=== PATIENT | male | born 1955 | race Caucasian/White ===

== ENCOUNTER → 2016-03-27 | Outpatient (CLI) | payer OTHER ==
[~2016-03-27] MED LIST: ASCO1CAP3 PO; ENOX100I SQ; WARF10TA4 PO; WARF7.5T4 PO
== END | disposition home or self-care (01) ==
LOC: C.PATHSPEC 17:34
PROVIDERS: ATTEND Urology
DX: N40.3 Nodular prostate with lower urinary tract symptoms (principal); C61 Malignant neoplasm of prostate

== ENCOUNTER → 2016-03-27 | Outpatient (CLI) | payer OTHER ==
[2016-03-27 09:35] LABS: PARTIAL THROMBOPLASTIN RATIO 1.1
== END | disposition home or self-care (01) ==
LOC: C.LAB1850 09:05
PROVIDERS: ATTEND Urology
DX: Z12.5 Encounter for screening for malignant neoplasm of prostate (principal)

== ENCOUNTER → 2016-04-12 | Outpatient (CLI) | payer OTHER ==
--- NOTE | 2016-04-12 16:52 | DIAGNOSTIC IMAGING REPORT ---
WHOLE-BODY NUCLEAR BONE SCAN CLINICAL HISTORY: Prostate cancer. COMPARISON STUDY: Chest CT dated 11/28/2015. TECHNIQUE: Three hours following the IV administration of 24.2 mCi of technetium 99m MDP, whole body nuclear bone scan was performed in the anterior and posterior projections. FINDINGS: There is no abnormal osseous tracer deposition identified typical in appearance for bony metastatic disease. Typically degenerative uptake is identified in the shoulders common knees, and ankles. Mild thoracic scoliosis is observed. There is slightly asymmetric activity suggested in the right anterior superior iliac spine as compared to the left. A small focus of activity projects over the right calvarium. There is expected excreted activity within the renal collecting system and bladder. A small focus of activity localizes to the left upper pole renal collecting system, possibly reflecting pooled tracer within a calyceal diverticulum. IMPRESSION: 1. There is no abnormal trace deposition identified typical for bony metastatic disease. 2. A small focus of activity projects over the right calvarium. This is not typical for metastatic disease and could be seen with a meningioma. Follow-up with a contrast-enhanced MRI of the brain is recommended for further assessment. 3. Slightly asymmetric activity is suggested in the right anterior superior iliac spine as compared to left. This is not typical for metastatic disease and may be related to enthesophyte formation. Pelvic radiograph is recommended for further assessment. 4. Additional findings as above. Electronically signed by: Axel Gutierrez M.D. 04/12/2016 4:51 PM Dictated Date/Time: 04/12/2016 4:46 PM
== END | disposition home or self-care (01) ==
LOC: C.NUCL 12:29
PROVIDERS: ATTEND Urology
DX: C61 Malignant neoplasm of prostate (principal)

== ENCOUNTER → 2016-05-17 | Outpatient (CLI) | payer OTHER ==
--- NOTE | 2016-05-17 10:05 | DIAGNOSTIC IMAGING REPORT ---
KUB HISTORY: Abnormal bone scan. Follow-up. COMPARISON: Bone scan 04/12/2016. FINDINGS: The bowel gas pattern is unremarkable. There are no dilated loops of small bowel to suggest an obstruction. No renal calculi. No ureteral calculi. No pneumoperitoneum or pneumatosis. An IVC filter is noted. No suspicious lytic or blastic osseous lesions. Enthesophytes at the right anterior superior iliac spine may correspond to the bone scan abnormality. IMPRESSION: No suspicious lytic or blastic osseous lesions. Electronically signed by: Mario Moody M.D. 05/17/2016 10:03 AM Dictated Date/Time: 05/17/2016 10:00 AM
--- NOTE | 2016-05-17 10:06 | DIAGNOSTIC IMAGING REPORT ---
PELVIS/BILATERAL HIP 2 VIEWS CLINICAL HISTORY: C61 R93.8 COMPARISON STUDY: Bone scan dated 04/12/2016 FINDINGS: Mild degenerative change of the hips bilaterally. Subtle osteophytic and/or degenerative reaction anterior iliac spines of the right and to lesser extent left. This apparently calcified activity seen on bone scan. Sacral iliac joints show minimal degenerative change. IMPRESSION: Mild degenerative change of the hips as well as iliac wings. This is apparently a calculus of the activity seen on bone scan. Electronically signed by: Vimal Mead M.D. 05/17/2016 10:04 AM Dictated Date/Time: 05/17/2016 9:59 AM
== END | disposition home or self-care (01) ==
LOC: C.RAD1850 09:39
PROVIDERS: ATTEND Internal Medicine
DX: R93.8 Abnormal findings on diagnostic imaging of other specified body structures (principal); C61 Malignant neoplasm of prostate

== ENCOUNTER → 2016-08-03 | Outpatient (CLI) | payer OTHER ==
[~2016-08-03] MED LIST changes: -ENOX100I SQ; -WARF7.5T4 PO
[2016-08-03 14:56] LABS: BLOOD UREA NITROGEN 20 mg/dl (7-18); BUN/CREATININE RATIO 18.3 (10-20); CALCIUM 8.6 mg/dl (8.5-10.1); CARBON DIOXIDE 22 mmol/L (21-32); CHLORIDE 109 mmol/L (98-107); GLUCOSE 86 mg/dl (70-99); POTASSIUM 3.9 mmol/L (3.5-5.1); SODIUM 142 mmol/L (136-145)
== END | disposition home or self-care (01) ==
LOC: C.LAB1850 13:02
PROVIDERS: ATTEND Internal Medicine
DX: C61 Malignant neoplasm of prostate (principal)

== ENCOUNTER → 2016-08-27 | Outpatient (CLI) | payer OTHER ==
[2016-08-27 15:49] LABS: BASO % 0.6 %; BASO ABS # 0.05 K/uL (0-0.2); COMPLETE YES; EOS % 1.2 %; HEMATOCRIT 47.1 % (42-52); IG% 0.1 %; LYMPH % 35.5 %; LYMPH ABS # 3.01 K/uL (1.2-3.4); MEAN CELL VOLUME 99.4 fL (80-100); MEAN CORPUSCULAR HGB CONC 34.2 g/dl (32-36); MEAN PLATELET VOLUME 11.4 fL (7.4-10.4); MONO % 15.4 %; NEUT % 47.2 %; PLATELET COUNT 354 K/uL (130-400); RED BLOOD COUNT 4.74 M/uL (4.7-6.1); WHITE BLOOD COUNT 8.49 K/uL (4.8-10.8)
[2016-08-27 15:55] LABS: ALT/SGPT 29 U/L (12-78); AST/SGOT 16 U/L (15-37); BLOOD UREA NITROGEN 22 mg/dl (7-18); BUN/CREATININE RATIO 19.7 (10-20); CALCIUM 8.9 mg/dl (8.5-10.1); CARBON DIOXIDE 25 mmol/L (21-32); CHLORIDE 111 mmol/L (98-107); GLUCOSE 86 mg/dl (70-99); POTASSIUM 4.1 mmol/L (3.5-5.1); SODIUM 142 mmol/L (136-145)
[2016-08-27 16:00] LABS: ALKALINE PHOSPHATASE 79 U/L (45-117)
[2016-08-27 16:01] LABS: URINE APPEARANCE CLEAR (CLEAR); URINE BILIRUBIN NEG (NEG); URINE COLOR YELLOW; URINE EPITHELIAL CELL AUTO 0-5 /lpf (0-5); URINE NITRITE NEG (NEG); URINE SPECIFIC GRAVITY 1.026 (1.000-1.030); UROBILINOGEN NEG (NEG); ZZUR CULT IF INDIC CLEAN CATCH NO
[2016-08-27 16:07] LABS: MANUAL MICROSCOPIC REQUIRED? NO; REVIEW REQ? NO
== END | disposition home or self-care (01) ==
LOC: C.LAB1850 14:27
PROVIDERS: ATTEND Internal Medicine
DX: N40.1 Benign prostatic hyperplasia with lower urinary tract symptoms (principal); C61 Malignant neoplasm of prostate

== ENCOUNTER → 2016-09-27 | Outpatient (CLI) | payer OTHER ==
[2016-09-27 13:26] LABS: BASO % 0.5 %; BASO ABS # 0.04 K/uL (0-0.2); COMPLETE YES; EOS % 1.4 %; HEMATOCRIT 44.2 % (42-52); IG% 0.1 %; LYMPH % 34.4 %; LYMPH ABS # 3.04 K/uL (1.2-3.4); MEAN CELL VOLUME 98.2 fL (80-100); MEAN CORPUSCULAR HEMOGLOBIN 34.9 pg (25-34); MEAN CORPUSCULAR HGB CONC 35.5 g/dl (32-36); MEAN PLATELET VOLUME 11.2 fL (7.4-10.4); MONO % 14.6 %; PLATELET COUNT 359 K/uL (130-400); WHITE BLOOD COUNT 8.83 K/uL (4.8-10.8)
[2016-09-27 13:49] LABS: ALT/SGPT 27 U/L (12-78); AST/SGOT 16 U/L (15-37); BLOOD UREA NITROGEN 17 mg/dl (7-18); BUN/CREATININE RATIO 17.4 (10-20); CALCIUM 8.8 mg/dl (8.5-10.1); CARBON DIOXIDE 26 mmol/L (21-32); CHLORIDE 108 mmol/L (98-107); GLUCOSE 88 mg/dl (70-99); POTASSIUM 3.9 mmol/L (3.5-5.1); SODIUM 139 mmol/L (136-145)
[2016-09-27 13:51] LABS: ALB/GLOB RATIO 1.1 (0.9-2); ALKALINE PHOSPHATASE 69 U/L (45-117)
[2016-09-27 15:21] LABS: URINE APPEARANCE CLEAR (CLEAR); URINE BILIRUBIN NEG (NEG); URINE COLOR YELLOW; URINE EPITHELIAL CELL AUTO 0-5 /lpf (0-5); URINE NITRITE NEG (NEG); URINE SPECIFIC GRAVITY 1.021 (1.000-1.030); UROBILINOGEN NEG (NEG); ZZUR CULT IF INDIC CLEAN CATCH NO
[2016-09-27 15:36] LABS: MANUAL MICROSCOPIC REQUIRED? NO; REVIEW REQ? NO
== END | disposition home or self-care (01) ==
LOC: C.LAB1850 12:02
PROVIDERS: ATTEND Internal Medicine
DX: Z00.00 Encounter for general adult medical examination without abnormal findings (principal)

== ENCOUNTER → 2016-10-22 | Outpatient (CLI) | payer OTHER ==
[2016-10-22 14:44] LABS: BASO % 0.7 %; BASO ABS # 0.07 K/uL (0-0.2); COMPLETE YES; EOS % 1.9 %; HEMATOCRIT 40.3 % (42-52); IG% 0.5 %; LYMPH % 31.4 %; LYMPH ABS # 3.08 K/uL (1.2-3.4); MEAN CELL VOLUME 103.3 fL (80-100); MEAN CORPUSCULAR HEMOGLOBIN 33.6 pg (25-34); MEAN CORPUSCULAR HGB CONC 32.5 g/dl (32-36); MEAN PLATELET VOLUME 11.4 fL (7.4-10.4); MONO % 14.2 %; NEUT % 51.3 %; PLATELET COUNT 753 K/uL (130-400); WHITE BLOOD COUNT 9.82 K/uL (4.8-10.8)
[2016-10-22 15:14] LABS: BLOOD UREA NITROGEN 18 mg/dl (7-18); BUN/CREATININE RATIO 16.4 (10-20); CALCIUM 8.6 mg/dl (8.5-10.1); CARBON DIOXIDE 27 mmol/L (21-32); CHLORIDE 107 mmol/L (98-107); GLUCOSE 97 mg/dl (70-99); POTASSIUM 4.5 mmol/L (3.5-5.1); SODIUM 140 mmol/L (136-145)
== END | disposition home or self-care (01) ==
LOC: C.LAB1850 13:35
PROVIDERS: ATTEND Internal Medicine
DX: D64.9 Anemia, unspecified (principal)

== ENCOUNTER → 2016-10-29 | Outpatient (CLI) | payer OTHER ==
--- NOTE | 2016-10-29 14:18 | DIAGNOSTIC IMAGING REPORT ---
ULTRASOUND VENOUS DOPPLER ULTRASOUND OF THE LEFT LOWER EXTREMITY CLINICAL HISTORY: Left leg pain and swelling COMPARISON STUDY: 02/01/2010 FINDINGS: No thrombus was visualized within the common femoral, superficial femoral, or popliteal veins. There is normal augmentation. There was normal color-flow within the proximal trifurcation veins of the calf. There is extensive greater saphenous vein thrombus extending from the proximal thigh to the mid calf. The maximal thrombus diameter is 9 mm. IMPRESSION: 1. Extensive greater saphenous vein thrombus. 2. No thrombus within the deep system proper Electronically signed by: Bryan Zepeda M.D. 10/29/2016 2:17 PM Dictated Date/Time: 10/29/2016 2:16 PM
== END | disposition home or self-care (01) ==
LOC: C.ULTR 13:42
PROVIDERS: ATTEND Internal Medicine
DX: M79.606 Pain in leg, unspecified (principal); Z86.711 Personal history of pulmonary embolism; I82.812 Embolism and thrombosis of superficial veins of left lower extremity

== ENCOUNTER → 2016-10-29 | Outpatient (CLI) | payer OTHER ==
[2016-10-29 14:34] LABS: BASO % 0.6 %; BASO ABS # 0.06 K/uL (0-0.2); COMPLETE YES; EOS % 4.6 %; HEMATOCRIT 40.7 % (42-52); IG% 0.2 %; LYMPH % 27.8 %; LYMPH ABS # 2.59 K/uL (1.2-3.4); MEAN CELL VOLUME 103.3 fL (80-100); MEAN CORPUSCULAR HGB CONC 32.9 g/dl (32-36); MONO % 14.5 %; NEUT % 52.3 %; PLATELET COUNT 553 K/uL (130-400); RED BLOOD COUNT 3.94 M/uL (4.7-6.1); WHITE BLOOD COUNT 9.31 K/uL (4.8-10.8)
== END | disposition home or self-care (01) ==
LOC: C.LAB1850 12:40
PROVIDERS: ATTEND Internal Medicine
DX: D64.9 Anemia, unspecified (principal)

== ENCOUNTER → 2016-11-14 | Outpatient (CLI) | payer OTHER ==
[2016-11-14 13:53] LABS: BASO % 0.6 %; BASO ABS # 0.05 K/uL (0-0.2); COMPLETE YES; EOS % 1.9 %; HEMATOCRIT 43.4 % (42-52); IG% 0.2 %; LYMPH % 34.3 %; LYMPH ABS # 3.01 K/uL (1.2-3.4); MEAN CELL VOLUME 101.4 fL (80-100); MEAN CORPUSCULAR HEMOGLOBIN 34.3 pg (25-34); MEAN CORPUSCULAR HGB CONC 33.9 g/dl (32-36); MEAN PLATELET VOLUME 11.5 fL (7.4-10.4); MONO % 14.8 %; NEUT % 48.2 %; PLATELET COUNT 435 K/uL (130-400); RED BLOOD COUNT 4.28 M/uL (4.7-6.1); WHITE BLOOD COUNT 8.78 K/uL (4.8-10.8)
[2016-11-14 14:02] LABS: INR 2.4 (0.9-1.1); PROTHROMBIN TIME (PATIENT) 26.5 SECONDS (9.0-12.0)
== END ==
LOC: C.LAB1850 12:39
PROVIDERS: ATTEND Internal Medicine
DX: D64.9 Anemia, unspecified (principal); Z79.01 Long term (current) use of anticoagulants

== ENCOUNTER → 2017-01-07 | Outpatient (CLI) | payer OTHER | END | disposition home or self-care (01) | LOC: C.LAB1850 12:22 | PROVIDERS: ATTEND Internal Medicine | DX: N40.1 Benign prostatic hyperplasia with lower urinary tract symptoms (principal); C61 Malignant neoplasm of prostate ==

== ENCOUNTER → 2017-04-11 | Outpatient (CLI) | payer OTHER ==
[2017-04-11 14:41] LABS: HEMATOCRIT 46.5 % (42-52); HEMOGLOBIN 15.7 g/dL (14.0-18.0); MEAN CELL VOLUME 99.8 fL (80-100); MEAN CORPUSCULAR HEMOGLOBIN 33.7 pg (25-34); MEAN CORPUSCULAR HGB CONC 33.8 g/dl (32-36); MEAN PLATELET VOLUME 11.6 fL (7.4-10.4); PLATELET COUNT 372 K/uL (130-400); RED CELL DISTRIBUTION WIDTH CV 14.2 % (11.5-14.5); RED CELL DISTRIBUTION WIDTH SD 51.7 fL (36.4-46.3); WHITE BLOOD COUNT 9.54 K/uL (4.8-10.8)
[2017-04-11 14:58] LABS: ALBUMIN 3.6 gm/dl (3.4-5.0); ALT/SGPT 26 U/L (12-78); AST/SGOT 17 U/L (15-37); BLOOD UREA NITROGEN 24 mg/dl (7-18); CALCIUM 8.5 mg/dl (8.5-10.1); CARBON DIOXIDE 25 mmol/L (21-32); CHOLESTEROL 174 mg/dl (0-200); CREATININE 1.22 mg/dl (0.60-1.40); GLUCOSE 103 mg/dl (70-99); POTASSIUM 3.9 mmol/L (3.5-5.1); SODIUM 136 mmol/L (136-145)
[2017-04-11 15:03] LABS: ALKALINE PHOSPHATASE 72 U/L (45-117); LDL CHOLESTEROL CALCULATED 105 mg/dl; TOTAL PROTEIN 7.5 gm/dl (6.4-8.2)
== END | disposition home or self-care (01) ==
LOC: C.LAB1850 12:30
PROVIDERS: ATTEND Internal Medicine
DX: C61 Malignant neoplasm of prostate (principal); E78.5 Hyperlipidemia, unspecified; G62.9 Polyneuropathy, unspecified; D64.9 Anemia, unspecified

== ENCOUNTER 2019-10-24 06:33 | Inpatient (IN) ==
[2019-10-24] MEDS ORDERED: ONDANSETRON INJ 2 MG/ML 2 ML VIAL IV STA (06:49)
[2019-10-24] MEDS ORDERED: SODIUM CHLORIDE 0.9% 1000ML 1,000 ML IV SCH (07:00)
[2019-10-24] MEDS ORDERED: MoRPHine SULFATE 2 MG/ML CARP IV STA (07:05)
--- NOTE | 2019-10-24 07:11 | Emergency Department Note ---
History of Present Illness General Chief complaint: Vomiting Stated complaint: VOMITING, HERNIA Time Seen by Provider: 10/24/19 06:52 Source: patient Mode of arrival: ambulatory Limitations: no limitations History of Present Illness Provider complaint: Vomiting/periumbilical abdominal pain Maximum Pain Intensity: 7 This is a 64-year-old male who presents to the ED with a chief complaint of nausea and vomiting that started last night after eating pizza for dinner. His daughter had the same food and did not fall sick. The patient states that he also has some pain in the supraumbilical region where he has an incisional hernia. This had been repaired a couple of years ago but has returned about 8 months ago. He states that he vomited 4 times. He denies diarrhea. The patient has no additional complaints at this time. Home Medications Home Medications Medication Instructions Recorded Confirmed Type acetaminophen [Tylenol Extra 500 mg PO Q6H PRN 10/24/19 10/24/19 History Strength] ascorbic acid (vitamin C) [Vitamin 500 mg PO QAM 10/24/19 10/24/19 History C] cholecalciferol (vitamin D3) 25 mcg PO UD PRN 10/24/19 10/24/19 History [Vitamin D3] magnesium oxide 400 mg PO UD PRN 10/24/19 10/24/19 History warfarin 10 mg PO PM 10/24/19 10/24/19 History zinc 50 mg PO UD PRN 10/24/19 10/24/19 History Allergies Allergy/AdvReac Type Severity Reaction Status Date / Time No Known Allergies Allergy Severe Verified 10/24/19 07:39 Past Med/Surg History Medical History History of pulmonary embolus (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 Prostate cancer (03/27/16) "Abnormal digital rectal exam, cT2a, PSA 2.13 Status post ultrasound-guided biopsies 03/27/2016 [place] 3+3 and 3+4 Prostate volume estimated at 48 Prostate density 0.044" Surgical History S/P insertion of IVC (inferior vena caval) filter S/P splenectomy Family History Daughter Asplenia Father BPH (benign prostatic hyperplasia) Diabetes Hypertension Sister Cancer Breast cancer Brother Crohn's disease Prostate cancer Mother Parkinson disease Social History Smoking Status: Never smoker Hx Alcohol Use: Yes (social) Hx Substance Use: No Preferred Language: Iranian Communication Ability: Effective Visual Impairment: No Limitations Hearing Ability: Normal marital status: Current Living Situation: Spouse current occupational status: employed current occupation: sales Feels Safe at Home: Yes Childhood Exposure to Second-Hand Smoke: No Physical Activity Frequency: 3-4 Times per Week Seatbelt Use: always Review of Systems A total of 10 systems reviewed and were otherwise negative Physical Exam Vital Signs Vital Signs - 24 hr 10/24/19 06:38 10/24/19 08:37 10/24/19 09:30 Temperature 36.6 C Temperature Source Oral Pulse Rate [Finger] 58 L 68 Pulse Rhythm [Finger] Regular Pulse Strength [Finger] Normal Respiratory Rate 18 18 18 Respiratory Effort / Characteristics Normal for Patient Non-Labored Spontaneous Respiratory Depth Normal Respiratory Pattern Regular Blood Pressure 159/92 H Blood Pressure [Right Arm] 137/79 139/70 Blood Pressure Mean 114 Blood Pressure Mean [Right Arm] 98 93 Blood Pressure Position Sitting Blood Pressure Position [Right Arm] Lying Pulse Oximetry 94 97 94 Oxygen Delivery Method Room Air Sepsis Recent Fever Within 48 Hours No Sepsis New/Unexplained Change in Mental Status N/A Sepsis Action Taken by Nursing No Action Required CONSTITUTIONAL/VITAL SIGNS: Reviewed / noted above. GENERAL: Non-toxic in appearance. INTEGUMENTARY: Warm, dry, and Overly. HEAD: Normocephalic. EYES: without scleral icterus or trauma. ENT/OROPHARYNX: clear and moist. LYMPHADENOPATHY/NECK: Is supple without lymphadenopathy or meningismus. RESPIRATORY: Lungs clear and equal. CARDIOVASCULAR: Regular rate and rhythm. GI/ABDOMEN: Soft and nontender. No organomegaly or pulsatile mass. No rebound or guarding. Normal bowel sounds. The patient has a small defect in the supraumbilical region without obvious palpable hernia. EXTREMITIES: Warm and well perfused. BACK: No CVA tenderness. NEUROLOGICAL: Intact without focal deficits. PSYCHIATRIC: normal affect. MUSCULOSKELETAL: Normally developed with good muscle tone. TRIAGE NURSING DOCUMENTATION REVIEWED. Course Administered Medications Discontinued Medications Sodium Chloride (Nss 1000ml) 1,000 mls @ 999 mls/hr IV .Q1H1M KAYLA Stop: 10/24/19 08:00 Last Infusion: 10/24/19 09:22 Dose: 0 mls/hr Documented by: [id number] Admin: 10/24/19 08:08 Dose: 999 mls/hr Documented by: [id number] Morphine Sulfate (Morphine Sulfate 2 Mg/Ml Carp) 2 mg IV NOW STA Stop: 10/24/19 07:06 Last Admin: 10/24/19 08:08 Dose: 2 mg Documented by: [id number] Ondansetron HCl (Ondansetron Inj 2 Mg/Ml 2 Ml Vial) 4 mg IV NOW STA Stop: 10/24/19 06:50 Last Admin: 10/24/19 08:08 Dose: 4 mg Documented by: [id number] Medical Decision Making Differential Diagnosis Differential considered: pancreatitis, hepatitis, acute cholecystitis, AAA, UTI, pyelonephritis, kidney stones, appendicitis, diverticulitis, shingles, bowel obstruction, mesenteric ischemia, intussusception,hernia, testicular torsion. Medical Records Attestation: I reviewed the patient's medical records. Home Medications Current Medication List: was personally reviewed by me Laboratory Data Attestation: I reviewed the patient's lab results. Result diagrams: 10/24/19 07:50 10/24/19 07:50 Lab Results 10/24/19 10/24/19 10/24/19 Range/Units 07:50 07:50 07:50 WBC 20.75 H (4.8-10.8) K/uL RBC 5.11 (4.7-6.1) M/uL Hgb 18.0 (14.0-18.0) g/dL Hct 50.6 (42-52) % MCV 99.0 (80-100) fL MCH 35.2 H (25-34) pg MCHC 35.6 (32-36) g/dL RDW Std Deviation 50.9 H (36.4-46.3) fL RDW Coeff of Anderson 14.1 (11.5-14.5) % Plt Count 398 (130-400) K/uL MPV 10.9 H (7.4-10.4) fL Immature Gran % (Auto) 0.3 % Neut % (Auto) 86.0 % Lymph % (Auto) 10.2 % [place] % (Auto) 3.3 % Eos % (Auto) 0.1 % Baso % (Auto) 0.1 % Neut # (Auto) 17.86 H (1.4-6.5) K/uL Lymph # (Auto) 2.11 (1.2-3.4) K/uL [place] # (Auto) 0.68 H (0.11-0.59) K/uL Eos # (Auto) 0.02 (0-0.5) K/uL Baso # (Auto) 0.02 (0-0.2) K/uL Immature Gran # (Auto) 0.06 H (0.00-0.02) K/uL PT 17.3 H (9.0-12.0) Seconds INR 1.7 H (0.9-1.1) Sodium 141 (136-145) mmol/L Potassium 4.0 (3.5-5.1) mmol/L Chloride 106 (98-107) mmol/L Carbon Dioxide 26 (21-32) mmol/L Anion Gap 9.0 (3-11) BUN 21 H (7-18) mg/dl Creatinine 1.23 (0.6-1.4) mg/dl Est Cr Clr Drug Dosing 71.6 ml/min Est GFR ( Amer) 71.0 Est GFR (Non-Af Amer) 61.2 BUN/Creatinine Ratio 16.9 (10-20) Glucose 126 H (70-99) mg/dl Calcium 9.9 (8.5-10.1) mg/dl Total Bilirubin 1.0 (0.2-1) mg/dl AST 21 (15-37) U/L ALT 28 (12-78) U/L Alkaline Phosphatase 82 (45-117) U/L Total Protein 8.2 (6.4-8.2) gm/dl Albumin 3.9 (3.4-5.0) gm/dl Globulin 4.3 H (2.5-4.0) gm/dl Albumin/Globulin Ratio 0.9 (0.9-2) Lipase 111 (73-393) U/L Specimen Hemolysis Imaging Data Radiologist's Impression: CT OF THE ABDOMEN AND PELVIS WITHOUT CONTRAST CLINICAL HISTORY: Vomiting. Periumbilical pain. History of hernia. COMPARISON STUDY: Right upper quadrant ultrasound September 28, 2014. TECHNIQUE: Axial images of the abdomen and pelvis were obtained without IV contr ast. Images were reviewed in the axial, sagittal, and coronal planes. Automated exposure control was utilized for the study. A dose lowering technique was utilized adhering to the principles of ALARA. FINDINGS: No pneumatosis, free air or portal venous gas is present. Evaluation of the abdomen and pelvis is suboptimal on this unenhanced examination. The liver, adrenal glands and pancreas are unremarkable. The spleen is not visualized. Water attenuation bilateral renal lesions are suboptimally assessed on this unenhanced exam but favor cysts. There are left-sided parapelvic cysts. There are gallstones within the gallbladder. IVC filters in place. Previous ventral hernia repair with mesh is noted. The proximal to mid small bowel is moderately dilated and fluid-filled. Discrete transition point is not identified however distal small bowel is relatively collapsed. The findings represent a partial small bowel obstruction. A small amount of ascites within the pelvis is noted. Stomach is fluid-filled and mildly distended. There are no suspicious osseous lesions. IMPRESSION: 1. Moderately dilated fluid-filled proximal to mid small bowel. Decompressed distal small bowel. Discrete transition point not identified however the findings represent a moderate grade small bowel obstruction. Small amount of ascites within the pelvis. No pneumatosis, free air or portal venous gas. Fluid- filled mildly distended stomach. 2. Cholelithiasis. MDM Narrative The patient presents to the emergency department with vomiting and supra umbilical abdominal discomfort since last night. He vomited 4 times. His exam does not reveal any focal abdominal tenderness. He does report discomfort in an area where he had a previous incisional hernia that has been repaired but returned. There is no palpable hernia in the defect area in the supraumbilical area. He has no focal tenderness of the abdomen. The patient's white blood cell count is 20. INR is 1.7. Metabolic panel was unremarkable. Lipase is negative. The patient was hydrated with IV fluids. He was given IV Zofran and IV morphine. An NG tube was ordered because of the CT scan that shows a small bowel obstruction. The patient will be seen by the hospitalist for further evaluation and care. Impression & Plan Complete small bowel obstruction Discharge Plan Visit Data Chief Complaint: Vomiting Stated Complaint: VOMITING, HERNIA ED Provider: Ovidio Hunter Discharge Problem: Complete small bowel obstruction Patient Disposition: Being Evaluated by Hospitalist Forms Stand Alone Forms: [facility] [employer] Prescriptions Prescriptions: No Action magnesium oxide 400 mg (241.3 mg magnesium) Tablet 400 mg PO UD PRN (Reason: Constipation) RF: 0 warfarin 5 mg tablet 10 mg PO PM RF: 0 ascorbic acid (vitamin C) [Vitamin C] 500 mg Capsule, Extended Release 500 mg PO QAM RF: 0 zinc 50 mg Tablet 50 mg PO UD PRN (Reason: Other) RF: 0 acetaminophen [Tylenol Extra Strength] 500 mg Capsule 500 mg PO Q6H PRN (Reason: Pain) RF: 0 cholecalciferol (vitamin D3) [Vitamin D3] 25 mcg (1,000 unit) Tablet 25 mcg PO UD PRN (Reason: Other) RF: 0 Referrals Referrals: Gerber Zayas MD [Primary Care Provider] -
[2019-10-24 08:08] LABS: Basophils # (auto) 0.02 K/uL (0-0.2); Basophils % (auto) 0.1 %; Eosinophils # (auto) 0.02 K/uL (0-0.5); Eosinophils % (auto) 0.1 %; Hematocrit (blood only) 50.6 % (42-52); Immature Granulocytes # (auto) 0.06 K/uL (0.00-0.02); Immature Granulocytes % (auto) 0.3 %; Lymphocytes # (auto) 2.11 K/uL (1.2-3.4); Lymphocytes % (auto) 10.2 %; Mean Corpuscular Hemoglobin 35.2 pg (25-34); Mean Corpuscular Hgb Conc 35.6 g/dL (32-36); Mean Platelet Volume 10.9 fL (7.4-10.4); Monocytes # (auto) 0.68 K/uL (0.11-0.59); Monocytes % (auto) 3.3 %; Neutrophils # (auto) 17.86 K/uL (1.4-6.5); Platelet Count 398 K/uL (130-400); RDW Coefficient of Variation 14.1 % (11.5-14.5); RDW Standard Deviation 50.9 fL (36.4-46.3); Red Blood Count 5.11 M/uL (4.7-6.1); White Blood Count 20.75 K/uL (4.8-10.8)
[2019-10-24 08:17] LABS: INR 1.7 (0.9-1.1); Prothrombin Time 17.3 Seconds (9.0-12.0)
[2019-10-24 08:29] LABS: Albumin Level 3.9 gm/dl (3.4-5.0); BUN Creatinine Ratio 16.9 (10-20); Calcium 9.9 mg/dl (8.5-10.1); Creatinine Clr Calc Pharmacy 71.6 ml/min; Est GFR (Non-African American) 61.2
[2019-10-24 08:32] LABS: Albumin Globulin Ratio 0.9 (0.9-2); Globulin 4.3 gm/dl (2.5-4.0); Total Protein 8.2 gm/dl (6.4-8.2)
--- NOTE | 2019-10-24 08:49 | CT Scan Report ---
CT OF THE ABDOMEN AND PELVIS WITHOUT CONTRAST CLINICAL HISTORY: Vomiting. Periumbilical pain. History of hernia. COMPARISON STUDY: Right upper quadrant ultrasound September 28, 2014. TECHNIQUE: Axial images of the abdomen and pelvis were obtained without IV contrast. Images were revi ewed in the axial, sagittal, and coronal planes. Automated exposure control was utilized for the antionette dy. A dose lowering technique was utilized adhering to the principles of ALARA. FINDINGS: No pneumatosis, free air or portal venous gas is present. Evaluation of the abdomen and pel vis is suboptimal on this unenhanced examination. The liver, adrenal glands and pancreas are unremark able. The spleen is not visualized. Water attenuation bilateral renal lesions are suboptimally assess ed on this unenhanced exam but favor cysts. There are left-sided parapelvic cysts. There are gallston es within the gallbladder. IVC filters in place. Previous ventral hernia repair with mesh is noted. T he proximal to mid small bowel is moderately dilated and fluid-filled. Discrete transition point is n ot identified however distal small bowel is relatively collapsed. The findings represent a partial sm all bowel obstruction. A small amount of ascites within the pelvis is noted. Stomach is fluid-filled and mildly distended. There are no suspicious osseous lesions. IMPRESSION: 1. Moderately dilated fluid-filled proximal to mid small bowel. Decompressed distal small bowel. Disc rete transition point not identified however the findings represent a moderate grade small bowel obst ruction. Small amount of ascites within the pelvis. No pneumatosis, free air or portal venous gas. Fl uid-filled mildly distended stomach. 2. Cholelithiasis. ACT 112: Negative or not required by law. Electronically signed by: Ramon Morales M.D. 10/24/2019 8:48 AM
[2019-10-24] MEDS ORDERED: ACETAMINOPHEN 325 MG TAB PO PRN (10:36)
[2019-10-24] MEDS ORDERED: ZOLPIDEM TARTRATE 5 MG TAB PO PRN (10:36)
[2019-10-24] MEDS ORDERED: ONDANSETRON INJ 2 MG/ML 2 ML VIAL IV PRN (10:36)
--- NOTE | 2019-10-24 11:36 | History & Physical Report ---
Date of Service October 24, 2019 Assessment & Plan (1) Complete small bowel obstruction: Patient is 64 yo male with multiple abdominal surgeries in the past. Very likely secondary to adhesions. will place ng tube with low intermitttent suction. will keep NPO. will monitor for BM. will consult gen surgery will try to limit narcotics. (2) History of pulmonary embolus (PE): on life long anticoagulation after having PE in . s/p IVC filter in . will place on IV heparin after NG tube is placed (3) shelter (current) use of anticoagulants: will hold warfarin and place on heparin as stated above. (4) S/P insertion of IVC (inferior vena caval) filter: placed in , may need to be removed, will defer to PCP. (5) Prostate cancer: s/p prostatectomy History of Present Illness Chief Complaint: nausea/ vomting Primary Care Provider: Gerber Zayas MD This is a pleasant 64-year-old male with significant past surgical history is coming in with the presentation of nausea vomiting which began yesterday at around 6 PM. He attributes this after having some pizza however his family who had a pizza was not sick. This was accomapnied by intermitent dull abdomainla pain with nausea and vomiting. No hem This gradually worsened which led him to come into the ER. He also was recently seen at [facility] in [place] for an abdominal hernia and is concerned that this may be related to that as well. His is at bedside and refers that he has history of pulmonary embolism is on warfarin had recently a supratherapeutic INR at 3.7 about 2 days ago. He also reports that he has an IVC filter that was placed back in 2003. He has had multiple abdominal surgeries beginning since he was a teenager. He also reports hvaing a history of ileus sp surgery for his prostatectomy. Allergies Allergy/AdvReac Type Severity Reaction Status Date / Time No Known Allergies Allergy Severe Verified 10/24/19 07:39 Home Medications Home Medications Medication Instructions Recorded Confirmed Type acetaminophen [Tylenol Extra 500 mg PO Q6H PRN 10/24/19 10/24/19 History Strength] ascorbic acid (vitamin C) [Vitamin 500 mg PO QAM 10/24/19 10/24/19 History C] cholecalciferol (vitamin D3) 25 mcg PO UD PRN 10/24/19 10/24/19 History [Vitamin D3] magnesium oxide 400 mg PO UD PRN 10/24/19 10/24/19 History warfarin 10 mg PO PM 10/24/19 10/24/19 History zinc 50 mg PO UD PRN 10/24/19 10/24/19 History Past Med/Surg History Medical History 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 Prostate cancer (03/27/16) "Abnormal digital rectal exam, cT2a, PSA 2.13 Status post ultrasound-guided biopsies 03/27/2016 [place] 3+3 and 3+4 Prostate volume estimated at 48 Prostate density 0.044" Surgical History H/O prostatectomy H/O ventral hernia repair laparoscopic performed in [place] S/P insertion of IVC (inferior vena caval) filter S/P splenectomy Thoracotomy scar Had removal of a pulmonary embolus Family History Daughter Asplenia Father BPH (benign prostatic hyperplasia) Diabetes Hypertension Sister Cancer Breast cancer Brother Crohn's disease Prostate cancer Mother Parkinson disease Social History Smoking Status: Never smoker Hx Alcohol Use: Yes Hx Substance Use: No Preferred Language: Northern Irish Communication Ability: Effective Visual Impairment: No Limitations Hearing Ability: Normal 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 Beliefs That Will Affect Care: None marital status: Current Living Situation: Spouse current occupational status: employed current occupation: sales Feels Safe at Home: Yes Safety Concerns: Feels Safe At This Time Childhood Exposure to Second-Hand Smoke: No Physical Activity Frequency: 3-4 Times per Week Seatbelt Use: always Review of Systems Constitutional: no fever, no sweats and no body aches Eyes: no blind spots and no diplopia Ear, Nose, Mouth, Throat: no ear trauma and no hyperacusis Respiratory: no change in sputum and no dyspnea Cardiovascular: no chest pain and no chest pain with activity Gastrointestinal: + nausea and + vomiting Genitourinary: no dysuria and no urinary frequency Musculoskeletal: no radicular pain Integumentary: no acne Neurologic: no loss of sensation Psychiatric: no behavioral changes Endocrine: no fatigue Physical Exam Constitutional: WD/WN, vitals as above well developed and well nourished Eyes: PERRL, conjunctivae normal, anicteric sclerae ENMT: external ear and nose normal, oropharynx normal Neck: trachea midline, no thyromegaly Respiratory: normal respiratory effort, lungs clear to auscultation Cardiovascular: RRR, no murmur, no edema Gastrointestinal (Abdomen): Inspection/Auscultation: abdomen normal to inspection, + abdominal surgical scar (horizontal in lft upper quadrant, small vertical icision slightly above umb) and + hypoactive bowel sounds Percussion/Palpation: abdomen soft; no guarding, no hepatosplenomegaly and no splenomegaly Musculoskeletal: no cyanosis or clubbing, extremities motor strength 5/5 Skin: no rashes, warm and dry Neurologic: PERRL, EOMI, accommodation nl, no face palsy, no dysarthria CN's II-XI intact bilaterally Psychiatric: A+Ox3, euthymic affect Lymphatic: no cervical or axillary lymphadenopathy Results & Data Results & Data ([facility]) Vital Signs (Past 12 Hours) Vital Signs Temp Pulse Resp BP BP Pulse Ox 10/24/19 10:30 78 18 130/78 95 10/24/19 09:30 68 18 139/70 94 10/24/19 08:37 58 L 18 137/79 97 10/24/19 06:38 36.6 C 18 159/92 H 94 PG Care Time/CCT Total # of Minutes Spent Total Time Spent with Patient: Total time spent is greater than 50% in coordination of care (as documented) at patient's floor/unit and/or counseling patient: Coding Level of Care Code 20876 Initial Inpt Care Lvl 3 Diagnoses Complete small bowel obstruction K56.609 History of pulmonary embolus (PE) Z86.711 shelter (current) use of anticoagulants Z79.01 S/P insertion of IVC (inferior vena caval) filter Z95.828 Prostate cancer C61 Time Spent (min) 55
--- NOTE | 2019-10-24 12:16 | XRay Report ---
XR KUB/Abdomen 1 view CLINICAL HISTORY: NG Tube, placement confirmation COMPARISON STUDY: No previous studies for comparison. FINDINGS: A single view the abdomen centered on hemidiaphragms is provided for interpretation. There is a nasogastric tube with its tip at the level of the gastric cardia. The radiolucent notch within t he tube is at the level of the esophagogastric junction. There are left basilar airspace opacities. A n IVC filter is visualized. IMPRESSION: The recently placed nasogastric tube is positioned with its tip at the level of the [place] yogi cardia ACT 112: Negative or not required by law. Electronically signed by: Bryan Zepeda M.D. 10/24/2019 12:14 PM
[2019-10-24] MEDS: LACTATED RINGER'S 1,000 ML IV SCH (13:16)
[2019-10-24] MEDS ORDERED: Heparin IV Standard *NO* Bolus IV SCH (16:38)
[2019-10-24 17:23] LABS: Basophils # (auto) 0.02 K/uL (0-0.2); Basophils % (auto) 0.1 %; Eosinophils # (auto) 0.26 K/uL (0-0.5); Eosinophils % (auto) 1.7 %; Hematocrit (blood only) 46.6 % (42-52); Hemoglobin 15.6 g/dL (14.0-18.0); Immature Granulocytes # (auto) 0.05 K/uL (0.00-0.02); Immature Granulocytes % (auto) 0.3 %; Lymphocytes # (auto) 2.14 K/uL (1.2-3.4); Lymphocytes % (auto) 13.6 %; Mean Corpuscular Hemoglobin 33.8 pg (25-34); Mean Corpuscular Volume 101.1 fL (80-100); Mean Platelet Volume 10.6 fL (7.4-10.4); Monocytes # (auto) 2.55 K/uL (0.11-0.59); Monocytes % (auto) 16.2 %; Neutrophils # (auto) 10.71 K/uL (1.4-6.5); Neutrophils % (auto) 68.1 %; Platelet Count 391 K/uL (130-400); RDW Coefficient of Variation 14.3 % (11.5-14.5); RDW Standard Deviation 53.1 fL (36.4-46.3); Red Blood Count 4.61 M/uL (4.7-6.1); White Blood Count 15.73 K/uL (4.8-10.8)
[2019-10-24] MEDS: HEPARIN SODIUM/DEXTROSE 25,000 UNITS/500 ML BAG IV SCH (17:27)
[2019-10-24 17:33] LABS: Mean Corpuscular Hgb Conc 33.5 g/dL (32-36)
[2019-10-24 17:34] LABS: INR 1.7 (0.9-1.1); Partial Thromboplastin Ratio 1.3; Partial Thromboplastin Time 36.7 Seconds (21.0-31.0); Prothrombin Time 17.8 Seconds (9.0-12.0)
--- NOTE | 2019-10-24 17:43 | Surgery Consultation ---
Date of Consultation October 24, 2019 Assessment & Plan (1) Complete small bowel obstruction: This patient has nausea vomiting and abdominal pain although that is better after NG tube placement. CT shows evidence of a small bowel obstruction but there is no transition point identified. I agree with conservative measures at first using NG tube and keeping him n.p.o. Continue with serial exams. Follow his clinical course. There is no evidence of peritonitis at the present time. I do not feel there is any need for immediate surgical intervention. History of Present Illness Reason for Consultation: Abdominal pain nausea and vomiting Requesting Physician: Angel Hartley Attending Physician: Angel Hartley History of Present Illness I have been asked by Dr. Hartley to see this 64-year-old male who presented to the emergency room with a 1 day history of nausea vomiting and abdominal pain. The patient states that he developed some mild abdominal discomfort yesterday. He then ate pizza for dinner. The pain became more severe and more frequent. He describes it as a cramp and dull discomfort. There was no sharp stabbing component. It was episodic. It was increasing in intensity and frequency however. He did not develop vomiting and had a few episodes of vomiting without hematemesis. The discomfort did not relinquish. He had a bowel movement yesterday but has not had a bowel movement since and is not passing flatus. He had one other episode where an NG tube was placed and the small bowel obstruction resolved spontaneously. At present he feels some better. He has not had any pain. He still not passed any flatus or had a bowel movement. Allergies Allergy/AdvReac Type Severity Reaction Status Date / Time No Known Allergies Allergy Severe Verified 10/24/19 07:39 Home Medications Home Medications Medication Instructions Recorded Confirmed Type acetaminophen [Tylenol Extra 500 mg PO Q6H PRN 10/24/19 10/24/19 History Strength] ascorbic acid (vitamin C) [Vitamin 500 mg PO QAM 10/24/19 10/24/19 History C] cholecalciferol (vitamin D3) 25 mcg PO UD PRN 10/24/19 10/24/19 History [Vitamin D3] magnesium oxide 400 mg PO UD PRN 10/24/19 10/24/19 History warfarin 10 mg PO PM 10/24/19 10/24/19 History zinc 50 mg PO UD PRN 10/24/19 10/24/19 History Patient History Medical History History of pulmonary embolus (PE) dedicated intermodal truck driver (current) use of anticoagulants Prostate cancer (03/27/16) "Abnormal digital rectal exam, cT2a, PSA 2.13 Status post ultrasound-guided biopsies 03/27/2016 [place] 3+3 and 3+4 Prostate volume estimated at 48 Prostate density 0.044" Surgical History (Updated 10/24/19 @ 17:42 by Vimal Valverde MD) H/O prostatectomy H/O ventral hernia repair laparoscopic performed in Home S/P insertion of IVC (inferior vena caval) filter S/P splenectomy Thoracotomy scar Had removal of a pulmonary embolus Family History Daughter Asplenia Father BPH (benign prostatic hyperplasia) Diabetes Hypertension Sister Cancer Breast cancer Brother Crohn's disease Prostate cancer Mother Parkinson disease Social History Smoking Status: Never smoker Hx Alcohol Use: Yes Hx Substance Use: No Preferred Language: Jordanian Communication Ability: Effective Visual Impairment: No Limitations Hearing Ability: Normal Chemical Dependency Attendant Required: No Beliefs That Will Affect Care: None marital status: Current Living Situation: Spouse current occupational status: employed current occupation: sales Feels Safe at Home: Yes Safety Concerns: Feels Safe At This Time Childhood Exposure to Second-Hand Smoke: No Physical Activity Frequency: 3-4 Times per Week Seatbelt Use: always Physical Exam Constitutional: no acute distress Neck: Thyroid: normal thyroid Respiratory: normal respiratory effort, lungs clear to auscultation Cardiovascular: Rate/Rhythm: regular rate and regular rhythm Gastrointestinal (Abdomen): Inspection/Auscultation: + hypoactive bowel sounds; abdomen not distended Percussion/Palpation: + abdomen tender (Minimal diffuse) and abdomen soft Skin: no rashes, warm and dry Lymphatic: no cervical lymphadenopathy Results & Data ([facility]) Vital Signs (Past 12 Hours) Vital Signs Temp Pulse Resp BP BP Pulse Ox 10/24/19 15:55 36.6 C 60 17 138/76 92 10/24/19 12:15 36.5 C 54 L 16 135/80 94 10/24/19 10:30 78 18 130/78 95 10/24/19 09:30 68 18 139/70 94 09/12/20 08:37 58 L 18 137/79 97 10/24/19 06:38 36.6 C 18 159/92 H 94 Laboratory Results 10/24/19 10/24/19 10/24/19 Range/Units 17:14 17:14 14:16 WBC 15.73 H (4.8-10.8) K/uL RBC 4.61 L (4.7-6.1) M/uL Hgb 15.6 (14.0-18.0) g/dL Hct 46.6 (42-52) % MCV 101.1 H (80-100) fL MCH 33.8 (25-34) pg MCHC 33.5 (32-36) g/dL RDW Std Deviation 53.1 H (36.4-46.3) fL RDW Coeff of Anderson 14.3 (11.5-14.5) % Plt Count 391 (130-400) K/uL MPV 10.6 H (7.4-10.4) fL Immature Gran % (Auto) 0.3 % Neut % (Auto) 68.1 % Lymph % (Auto) 13.6 % [place] % (Auto) 16.2 % Eos % (Auto) 1.7 % Baso % (Auto) 0.1 % Neut # (Auto) 10.71 H (1.4-6.5) K/uL Lymph # (Auto) 2.14 (1.2-3.4) K/uL [place] # (Auto) 2.55 H (0.11-0.59) K/uL Eos # (Auto) 0.26 (0-0.5) K/uL Baso # (Auto) 0.02 (0-0.2) K/uL Immature Gran # (Auto) 0.05 H (0.00-0.02) K/uL PT 17.8 H (9.0-12.0) Seconds INR 1.7 H (0.9-1.1) APTT 36.7 H (21.0-31.0) Seconds PTT Ratio 1.3 Sodium (136-145) mmol/L Potassium (3.5-5.1) mmol/L Chloride (98-107) mmol/L Carbon Dioxide (21-32) mmol/L Anion Gap (3-11) BUN (7-18) mg/dl Creatinine (0.6-1.4) mg/dl Est Cr Clr Drug Dosing ml/min Est GFR ( Amer) Est GFR (Non-Af Amer) BUN/Creatinine Ratio (10-20) Glucose (70-99) mg/dl Lactate (0.4-2.0) mmol/L Calcium (8.5-10.1) mg/dl Total Bilirubin (0.2-1) mg/dl AST (15-37) U/L ALT (12-78) U/L Alkaline Phosphatase (45-117) U/L Total Protein (6.4-8.2) gm/dl Albumin (3.4-5.0) gm/dl Globulin (2.5-4.0) gm/dl Albumin/Globulin Ratio (0.9-2) Lipase (73-393) U/L Procalcitonin < 0.05 (0-0.5) ng/ml Specimen Hemolysis 10/24/19 10/24/19 10/24/19 Range/Units 14:16 12:34 07:50 WBC (4.8-10.8) K/uL RBC (4.7-6.1) M/uL Hgb (14.0-18.0) g/dL Hct (42-52) % MCV (80-100) fL MCH (25-34) pg MCHC (32-36) g/dL RDW Std Deviation (36.4-46.3) fL RDW Coeff of Anderson (11.5-14.5) % Plt Count (130-400) K/uL MPV (7.4-10.4) fL Immature Gran % (Auto) % Neut % (Auto) % Lymph % (Auto) % [place] % (Auto) % Eos % (Auto) % Baso % (Auto) % Neut # (Auto) (1.4-6.5) K/uL Lymph # (Auto) (1.2-3.4) K/uL [place] # (Auto) (0.11-0.59) K/uL Eos # (Auto) (0-0.5) K/uL Baso # (Auto) (0-0.2) K/uL Immature Gran # (Auto) (0.00-0.02) K/uL PT (9.0-12.0) Seconds INR (0.9-1.1) APTT (21.0-31.0) Seconds PTT Ratio Sodium 141 (136-145) mmol/L Potassium 4.0 (3.5-5.1) mmol/L Chloride 106 (98-107) mmol/L Carbon Dioxide 26 (21-32) mmol/L Anion Gap 9.0 (3-11) BUN 21 H (7-18) mg/dl Creatinine 1.23 (0.6-1.4) mg/dl Est Cr Clr Drug Dosing 71.6 ml/min Est GFR ( Amer) 71.0 Est GFR (Non-Af Amer) 61.2 BUN/Creatinine Ratio 16.9 (10-20) Glucose 126 H (70-99) mg/dl Lactate 1.8 2.2 H* (0.4-2.0) mmol/L Calcium 9.9 (8.5-10.1) mg/dl Total Bilirubin 1.0 (0.2-1) mg/dl AST 21 (15-37) U/L ALT 28 (12-78) U/L Alkaline Phosphatase 82 (45-117) U/L Total Protein 8.2 (6.4-8.2) gm/dl Albumin 3.9 (3.4-5.0) gm/dl Globulin 4.3 H (2.5-4.0) gm/dl Albumin/Globulin Ratio 0.9 (0.9-2) Lipase 111 (73-393) U/L Procalcitonin (0-0.5) ng/ml Specimen Hemolysis 10/24/19 10/24/19 Range/Units 07:50 07:50 WBC 20.75 H (4.8-10.8) K/uL RBC 5.11 (4.7-6.1) M/uL Hgb 18.0 (14.0-18.0) g/dL Hct 50.6 (42-52) % MCV 99.0 (80-100) fL MCH 35.2 H (25-34) pg MCHC 35.6 (32-36) g/dL RDW Std Deviation 50.9 H (36.4-46.3) fL RDW Coeff of Anderson 14.1 (11.5-14.5) % Plt Count 398 (130-400) K/uL MPV 10.9 H (7.4-10.4) fL Immature Gran % (Auto) 0.3 % Neut % (Auto) 86.0 % Lymph % (Auto) 10.2 % [place] % (Auto) 3.3 % Eos % (Auto) 0.1 % Baso % (Auto) 0.1 % Neut # (Auto) 17.86 H (1.4-6.5) K/uL Lymph # (Auto) 2.11 (1.2-3.4) K/uL [place] # (Auto) 0.68 H (0.11-0.59) K/uL Eos # (Auto) 0.02 (0-0.5) K/uL Baso # (Auto) 0.02 (0-0.2) K/uL Immature Gran # (Auto) 0.06 H (0.00-0.02) K/uL PT 17.3 H (9.0-12.0) Seconds INR 1.7 H (0.9-1.1) APTT (21.0-31.0) Seconds PTT Ratio Sodium (136-145) mmol/L Potassium (3.5-5.1) mmol/L Chloride (98-107) mmol/L Carbon Dioxide (21-32) mmol/L Anion Gap (3-11) BUN (7-18) mg/dl Creatinine (0.6-1.4) mg/dl Est Cr Clr Drug Dosing ml/min Est GFR ( Amer) Est GFR (Non-Af Amer) BUN/Creatinine Ratio (10-20) Glucose (70-99) mg/dl Lactate (0.4-2.0) mmol/L Calcium (8.5-10.1) mg/dl Total Bilirubin (0.2-1) mg/dl AST (15-37) U/L ALT (12-78) U/L Alkaline Phosphatase (45-117) U/L Total Protein (6.4-8.2) gm/dl Albumin (3.4-5.0) gm/dl Globulin (2.5-4.0) gm/dl Albumin/Globulin Ratio (0.9-2) Lipase (73-393) U/L Procalcitonin (0-0.5) ng/ml Specimen Hemolysis Diagnostic Findings CT OF THE ABDOMEN AND PELVIS WITHOUT CONTRAST CLINICAL HISTORY: Vomiting. Periumbilical pain. History of hernia. COMPARISON STUDY: Right upper quadrant ultrasound September 28, 2014. TECHNIQUE: Axial images of the abdomen and pelvis were obtained without IV contrast. Images were reviewed in the axial, sagittal, and coronal planes. Automated exposure control was utilized for the study. A dose lowering technique was utilized adhering to the principles of ALARA. FINDINGS: No pneumatosis, free air or portal venous gas is present. Evaluation of the abdomen and pelvis is suboptimal on this unenhanced examination. The liver, adrenal glands and pancreas are unremarkable. The spleen is not visualized. Water attenuation bilateral renal lesions are suboptimally assessed on this unenhanced exam but favor cysts. There are left-sided parapelvic cysts. There are gallstones within the gallbladder. IVC filters in place. Previous ventral hernia repair with mesh is noted. The proximal to mid small bowel is moderately dilated and fluid-filled. Discrete transition point is not identified however distal small bowel is relatively collapsed. The findings represent a partial small bowel obstruction. A small amount of ascites within the pelvis is noted. Stomach is fluid-filled and mildly distended. There are no suspicious osseous lesions. IMPRESSION: 1. Moderately dilated fluid-filled proximal to mid small bowel. Decompressed distal small bowel. Discrete transition point not identified however the findings represent a moderate grade small bowel obstruction. Small amount of ascites within the pelvis. No pneumatosis, free air or portal venous gas. Fluid- filled mildly distended stomach. 2. Cholelithiasis.
[2019-10-24 20:12] LABS: Appearance Urine Clear (Clear); Bilirubin Urine Negative (Negative); Blood Urine Negative (Negative); Color Urine Yellow; Glucose Urine UA Negative (Negative); Ketones Urine Negative (Negative); Leukocyte Esterase Urine Negative (Negative); Nitrite Urine Negative (Negative); Protein Urine Negative (Negative); Specific Gravity Urine 1.022 (1.000-1.030); Urobilinogen Urine Negative (Negative)
[2019-10-25] LABS: Partial Thromboplastin Ratio 3.3
[2019-10-25 00:22] LABS: Partial Thromboplastin Time 92.4 Seconds (21.0-31.0)
[2019-10-25] MEDS: LACTATED RINGER'S 1,000 ML IV SCH ×2 (01:02→12:58)
[2019-10-25 07:38] LABS: Partial Thromboplastin Ratio 2.6
[2019-10-25 07:42] LABS: Partial Thromboplastin Time 73.5 Seconds (21.0-31.0)
--- NOTE | 2019-10-25 08:04 | Hospitalist Progress Note ---
Date of Service October 25, 2019 Assessment & Plan (1) Complete small bowel obstruction: Patient is 64 yo male with multiple abdominal surgeries in the past. Very likely secondary to adhesions. CT scan abdomen pelvis without contrast 10/24/2019 Moderately dilated fluid- filled proximal to mid small bowel. Decompressed distal small bowel. Discrete transition point not identified however the findings represent a moderate grade small bowel obstruction. Small amount of ascites within the pelvis. No pneumatosis, free air or portal venous gas. Fluid-filled mildly distended stomach. Surgery is discontinued NG tube and advance diet to clears Neurosurgery continues to follow . (2) History of pulmonary embolus (PE): on life long anticoagulation after having PE in 04. s/p IVC filter in 04. 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 (4) S/P insertion of IVC (inferior vena caval) filter: placed in , . (5) Prostate cancer: s/p prostatectomy Admission and Anticipated Discharge Date Admission Date: October 24, 2019 Subjective Patient feels somewhat improved today tolerating clear liquid clear liquid diet surgery has discontinued his NG tube he has had some minor flatus Review of Systems Review of Systems: Mild distress and fatigue no headache, blurry or double vision no speech or swallowing issues no chest pain, pressure or palpitations no shortness of breath, cough or wheezes Resolved abdominal pain, nausea or vomiting, still no stool production no dysuria, hematuria or frequency no focal joint pain or swelling no back pain, CVA tenderness or radicular pain no bruising, bleeding or rashes no focal signs of weakness or numbness or altered sensation no complaints or anxiety or depression. Physical Exam Physical Exam: The patient appeared well nourished and normally developed. Vital signs as documented. Head exam is normocephalic atraumatic no scleral icterus Neck is without JVD, thyromegaly, or carotid bruits. Lungs are clear to auscultation, no focal loss of breath sounds Cardiac exam, Rhythm is regular.. No murmurs, rubs or gallops. Abdominal exam reveals hypoactive bowel sounds, soft non tender, no masses Extremities are nonedematous and both pedal pulses are normal. Neurologic exam is alert and oriented, no focal loss of strength or sensation Skin is without bruises or rashes Psychologically is without concerns for anxiety or depression. Results & Data Results & Data ([facility]) Vital Signs (Past 12 Hours) Vital Signs Temp Pulse Resp BP Pulse Ox 10/25/19 07:07 98.1 F 50 L 19 139/77 93 10/24/19 23:31 98.8 F 57 L 20 145/65 H 93 PG Care Time/CCT Total # of Minutes Spent Total Time Spent with Patient: Total time spent is greater than 50% in coordination of care (as documented) at patient's floor/unit and/or counseling patient: Coding Level of Care Code 02340 Subseq Hosp Care Lvl 2 Diagnoses Complete small bowel obstruction K56.609 History of pulmonary embolus (PE) Z86.711 terminal make up operator (current) use of anticoagulants Z79.01 S/P insertion of IVC (inferior vena caval) filter Z95.828 Prostate cancer C61
[2019-10-25] MEDS: HEPARIN SODIUM/DEXTROSE 25,000 UNITS/500 ML BAG IV SCH ×2 (09:46→14:55)
--- NOTE | 2019-10-25 09:56 | Surgery Progress Note ---
Date of Service October 25, 2019 Assessment & Plan (1) Complete small bowel obstruction: Passing flatus and having small bowel movements. Nausea and vomiting of resolved Small bowel obstruction resolving D/C NG tube Begin sips of clear liquids No peritonitis No indication for surgical intervention at this time Admission and Anticipated Discharge Date Admission Date: October 24, 2019 Subjective Feels better today Denies nausea and vomiting Has no abdominal pain Passed some liquid stool and has passed a large amount of flatus Physical Exam Constitutional: no acute distress Gastrointestinal (Abdomen): Inspection/Auscultation: normal bowel sounds; abdomen not distended Percussion/Palpation: abdomen soft; abdomen nontender Results & Data ([facility]) Vital Signs (Past 12 Hours) Vital Signs Temp Pulse Resp BP Pulse Ox 10/25/19 07:07 36.7 C 50 L 19 139/77 93 10/24/19 23:31 37.1 C 57 L 20 145/65 H 93
[2019-10-25 14:30] LABS: Partial Thromboplastin Ratio 2.9
[2019-10-25 14:37] LABS: Partial Thromboplastin Time 79.8 Seconds (21.0-31.0)
[2019-10-25 19:39] LABS: Partial Thromboplastin Ratio 2.1
[2019-10-25 19:42] LABS: Partial Thromboplastin Time 57.5 Seconds (21.0-31.0)
[2019-10-25 22:02] LABS: Partial Thromboplastin Ratio 2.6
[2019-10-25 22:04] LABS: Partial Thromboplastin Time 73.1 Seconds (21.0-31.0)
[2019-10-26] MEDS: LACTATED RINGER'S 1,000 ML IV SCH (01:18)
[2019-10-26 04:34] LABS: Hematocrit (blood only) 44.5 % (42-52); Hemoglobin 15.1 g/dL (14.0-18.0); Mean Corpuscular Hemoglobin 34.1 pg (25-34); Mean Corpuscular Hgb Conc 33.9 g/dL (32-36); Mean Corpuscular Volume 100.5 fL (80-100); Mean Platelet Volume 10.8 fL (7.4-10.4); Platelet Count 352 K/uL (130-400); RDW Coefficient of Variation 13.9 % (11.5-14.5); RDW Standard Deviation 51.5 fL (36.4-46.3); Red Blood Count 4.43 M/uL (4.7-6.1); White Blood Count 10.42 K/uL (4.8-10.8)
[2019-10-26 04:53] LABS: Partial Thromboplastin Ratio 1.9
[2019-10-26 05:19] LABS: Partial Thromboplastin Time 52.5 Seconds (21.0-31.0)
--- NOTE | 2019-10-26 11:53 | Surgery Progress Note ---
Date of Service October 26, 2019 Assessment & Plan (1) Complete small bowel obstruction: Small bowel obstruction resolving or resolved. Would place on soft diet today to see if he tolerates it as he did tolerate a clear liquid diet yesterday No indication for surgical intervention immediately. Admission and Anticipated Discharge Date Admission Date: October 24, 2019 Subjective Patient feels well today Denies abdominal pain Had 2 bowel movements yesterday and at least one this morning The one today was a little more loose No nausea or vomiting Tolerated clear liquid diet Physical Exam Gastrointestinal (Abdomen): Inspection/Auscultation: abdomen not distended Percussion/Palpation: abdomen soft; abdomen nontender and no guarding Results & Data ([facility]) Vital Signs (Past 12 Hours) Vital Signs Temp Pulse Resp BP Pulse Ox 10/26/19 07:28 36.6 C 48 L 16 145/74 H 92
--- NOTE | 2019-10-26 14:28 | Discharge Summary ---
Date of Service October 26, 2019 Admission HPI Per Admitting Provider This is a pleasant 64-year-old male with significant past surgical history is coming in with the presentation of nausea vomiting which began yesterday at around 6 PM. He attributes this after having some pizza however his family who had a pizza was not sick. This was accomapnied by intermitent dull abdomainla pain with nausea and vomiting. No hem This gradually worsened which led him to come into the ER. He also was recently seen at [facility] in [place] for an abdominal hernia and is concerned that this may be related to that as well. His is at bedside and refers that he has history of pulmonary embolism is on warfarin had recently a supratherapeutic INR at 3.7 about 2 days ago. He also reports that he has an IVC filter that was placed back in 2003. He has had multiple abdominal surgeries beginning since he was a teenager. He also reports hvaing a history of ileus sp surgery for his prostatectomy. Principal Diagnosis Small bowel obstruction Discharge Exam Constitutional WD/WN, vitals as above Eyes PERRL, conjunctivae normal, anicteric sclerae ENMT external ear and nose normal, oropharynx normal Neck trachea midline, no thyromegaly Respiratory normal respiratory effort, lungs clear to auscultation Cardiovascular RRR, no murmur, no edema Gastrointestinal (Abdomen) normal bowel sounds, soft, nontender, no hepatosplenomegaly Musculoskeletal no cyanosis or clubbing, extremities motor strength 5/5 Skin no rashes, warm and dry Neurologic patellar DTR's 2+ bilat, sensation intact and PERRL, EOMI, accommodation nl, no face palsy, no dysarthria Psychiatric A+Ox3, euthymic affect Lymphatic no cervical or axillary lymphadenopathy Discharge Data Allergies Allergy/AdvReac Type Severity Reaction Status Date / Time No Known Allergies Allergy Severe Verified 10/24/19 07:39 Consultations 10/24/19 10:53 ED Decision to Admit Stat 10/24/19 11:28 Consult General Surgery Routine Ordered Studies 10/24/19 07:05 CT abd pelvis wo con Stat Hospital Course (1) Complete small bowel obstruction: Patient is 64 yo male with multiple abdominal surgeries in the past. Very likely secondary to adhesions. CT scan abdomen pelvis without contrast 10/24/2019 Moderately dilated fluid- filled proximal to mid small bowel. Decompressed distal small bowel. Discrete transition point not identified however the findings represent a moderate grade small bowel obstruction. Small amount of ascites within the pelvis. No pneumatosis, free air or portal venous gas. Fluid-filled mildly distended stomach. Surgery is discontinued NG tube and advance diet to clears now tolerating low residue diet moving bowels and + flatus several times obstruction is resolved, will discharge home he has plans to get a CT with PO/IV contrast in the [facility] system so that his surgeon in [place] can review imaging he will follow up with his surgeon in [place] for recommendations he knows to return to hospital if he has recurrent symptoms of obstruction . (2) History of pulmonary embolus (PE): on life long anticoagulation after having PE in . s/p IVC filter in . 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 (5) Prostate cancer: s/p prostatectomy Total Time Total Time Spent Total Time Spent (In Minutes): 33 minutes Total Time Includes: Examination of the Patient, Discharge Planning, Medication Reconciliation, Communication With Other Providers (general surgery) and Other (answered questions from patient's at bedside) Discharge Plan Discharge Items Patient Disposition: Home - Self-Care Reason For Visit: SBO Discharge Diagnosis: Partial small bowel obstruction, resolved Ventral/incisional hernia Condition on Discharge: Good Goals: follow a low residue diet, stay well hydrated follow up for CT with oral contrast at [facility] follow up with surgeon at [facility] Activity: Resume your previous activity Non-emergency contact: Primary Care Provider Call non-emergency contact if: you have any medication questions and your symptoms worsen Follow-up/Referrals: Gerber Zayas MD [Primary Care Provider] - 11/02/19 2:15 pm (one week) Diet: Low Fiber Addtl Attending Provider Instructions: Medications: no changes Small bowel obstruction: clinically resolved as you are moving bowels recommend that you follow a low fiber diet, avoid foods that are difficult to digest stay well hydrated, stay active strongly recommend a CT abdomen/pelvis with oral contrast that was requested by your surgeon follow up with your surgeon about results of the CT certainly the hernia or adhesions from prior surgery could be causing the obstruction possible that the obstruction will happen again in the future watch for abdominal distension, pain, vomiting, not passing gas or stool Pending Studies at Discharge: No Stand-Alone Forms: My [facility] LoveThis, Smoking Cessation Medications and DC Order Prescriptions: Continued magnesium oxide 400 mg (241.3 mg magnesium) Tablet 400 mg PO UD PRN (Reason: Constipation) RF: 0 warfarin 5 mg tablet 10 mg PO PM RF: 0 ascorbic acid (vitamin C) [Vitamin C] 500 mg Capsule, Extended Release 500 mg PO QAM RF: 0 zinc 50 mg Tablet 50 mg PO UD PRN (Reason: Other) RF: 0 acetaminophen 500 mg Capsule 500 mg PO Q6H PRN (Reason: Pain) RF: 0 cholecalciferol (vitamin D3) [Vitamin D3] 25 mcg (1,000 unit) Tablet 25 mcg PO UD PRN (Reason: Other) RF: 0 Discharge Orders: Discharge Order (Routine); Ordered 10/26/19 Ordered By: Shakeel Villar Admission Data Admit Date/Time: 10/24/19 10:36 Attending Provider: Shakeel Villar Admit Provider: Angel Hartley Primary Care Provider: Gerber Zayas. Other Providers: Angel Hartley ; Vimal Valverde Other Interventions: Discharge Summary Assessment (RN) Last Done: 10/26/19 15:13 Coding Level of Care Code D/C Day Management >30 mins Diagnoses Complete small bowel obstruction K56.609 History of pulmonary embolus (PE) Z86.711 intermediate designer (current) use of anticoagulants Z79.01 S/P insertion of IVC (inferior vena caval) filter Z95.828 Prostate cancer C61
[2019-10-26] MEDS ORDERED: WARFARIN SOD 10 MG TAB PO SCH (16:00)
== END 2019-10-26 15:31 | disposition home or self-care (01) | DRG 390 ==
LOC: ED 06:33 → 3N 10:36 → SUATTDRO 10:36 → 3N 12:19